=== PATIENT | female | born 1985 | race Caucasian/White ===

== ENCOUNTER 2023-12-15 16:15 | Emergency (ER) | payer BC, SELFPAY ==
--- NOTE | 2023-12-15 16:28 | ED.GENADULT ---
HPI - General Adult General Chief complaint: Upper Respiratory Infection Stated complaint: Fever/Bodyaches Source: patient, RN notes reviewed and old records reviewed Mode of arrival: ambulatory Limitations: no limitations History of Present Illness HPI narrative: 38-year-old female presents to [facility] with complaints cough, congestion, myalgia, fatigue that started today. Patient states he is concerned because has been tested positive for influenza a on Friday. Patient is 21 weeks she has not taken any [id number] medications. Related Data Home Medications Medication Instructions Recorded Confirmed vitamin-ferrous fumarate 1 tablet PO DAILY 12/15/23 12/15/23 40 mg iron-folic acid 1 mg tablet Allergies Allergy/AdvReac Type Severity Reaction Status Date / Time No Known Allergies Allergy Verified 12/15/23 16:26 Review of Systems Constitutional: Constitutional: Reports no additional constitutional complaints, Reports body ache(s), Denies chills, Reports fatigue, Denies fever(s) and Denies headache(s) Eyes: Eyes: Reports no additional eye complaints and Denies blurry vision ENT: Reports system reviewed and no additional complaints, except as documented, Denies vertigo, Denies dizziness, Denies ear discharge, Denies otalgia, Denies facial pain, Denies headache(s), Reports nasal congestion, Reports nasal discharge, Denies sinus pain, Denies sinus pressure and Denies sore throat Cardiovascular: Cardiovascular: Reports no additional cardiovascular complaints, Denies chest pain, Denies chest pain at rest, Denies rapid heart rate and Denies dyspnea Respiratory: Respiratory: Reports no additional respiratory complaints, Denies chest congestion, Reports cough, Denies pain on inspiration, Denies pain with cough and Denies dyspnea Gastrointestinal: Gastrointestinal: Denies abdominal pain, Denies diarrhea, Denies nausea and Denies vomiting Integumentary/Breasts: Skin/Breast: Denies rash Neurologic: Reports system reviewed and no additional complaints, except as documented, Denies vertigo, Denies dizziness and Denies headache(s) Endocrine: Endocrine: Denies fatigue PMFSH Comments At the time of my signature, I reviewed and agree with the nursing past medical, surgical, social, and family history. There is no relevant family history pertinent to the patient complaint. Exam Const: General: cooperative, healthy appearing, no acute distress and well nourished Nutritional Appearance: well nourished Orientation/consciousness: patient oriented x3 Limitations: no limitations HENMT: Head: normal to inspection and normocephalic Ears: external ears normal, TM's normal bilaterally, mastoids normal and Abnormal EAC present Face/Nose/Sinus: normal facial exam Face and sinus: normal facial exam Mouth: Yes Normal oral and palatal mucosa present, Yes oropharynx normal and Yes moist mucous membranes Throat: tonsils normal, uvula midline and no uvular edema Eyes: General: appearance normal, both eyes and all related structures Sclera: sclerae normal Pupils: Equal, round and reactive pupils present Resp: Effort & Inspection: normal respiratory effort, able to speak in complete sentences, no audible wheezes, no cough, no respiratory distress and no retractions Auscultation: clear to auscultation bilaterally, no crackles, no rales, no rhonchi and no wheezes Cardio: Rate: regular rate Rhythm: regular rhythm Skin: General skin exam: normal color and no rashes or lesions noted Neuro: General: patient oriented x3 Cranial nerves: Yes Equal, round and reactive pupils present Psych: Appearance: grossly normal Mental Status: mental status grossly normal Speech and movement: Normal speech and movement present Affect: normal affect Course Course Emergency Course: Patient is aware of diagnosis, understands and agrees to treatment plan.? Anticipatory guidance given.? Patient agrees to follow-up as directed and is
[2023-12-15 16:34] VITALS: BP 100/53; PULSE 114; RESP 20; TEMP 36.9; O2SAT 100
== END 2023-12-15 16:43 | disposition home or self-care (01) ==
PROVIDERS: Emergency Provider Registered Nurse; PCP Family Medicine
DX: O98.512 Other viral diseases complicating pregnancy, second trimester (principal); B33.8 Other specified viral diseases; Z3A.21 21 weeks gestation of pregnancy; J10.1 Influenza due to other identified influenza virus with other respiratory manifestations
CPT/HCPCS: 87804; 99213; G0463

== ENCOUNTER 2024-03-15 18:00 | Observation (INO) | payer BC, SELFPAY ==
--- NOTE | 2024-03-15 18:00 | OBADM ---
This patient, Delmy Louie, admitted to the OB room [facility] for observation. Patient/family oriented to hospital policies and general routines including ID bracelet, bed and alarms, visiting hours, pain management, procedures, bathroom and other care routines, personal items, smoking policy, room service/diet, and visiting hours. Patient/Family are encouraged to report perceived risks to care and to ask questions if they do not understand what they are told or what they should do.
[2024-03-15 18:45] VITALS: BP 129/67; PULSE 101; BMI 43.2
[2024-03-15 18:58] LABS: Appearance Urine Cloudy (Clear); Bacteria Urine 4+ /hpf; Bilirubin Urine Negative (Negative); Blood Urine Negative (Negative); Color Urine Dark Yellow (Yellow); Glucose Urine UA Negative (Negative); Ketones Urine 2+ mg/dL (Negative); Leukocyte Esterase Ur 2+ LEU/UL (Negative); Need Manual Microscopic Reviewed; Nitrate Urine Negative (Negative); Protein Urine 2+ mg/dL (Negative); RBC Urine 0-2 /hpf (0-2); Specific Grav Ur 1.022 (1.001-1.035); Squamous Epithelial Cell Urine Many /hpf (Few); WBC Urine 51-100 /hpf (0-3); pH Urine 6.5 (5.0-9.0)
[2024-03-15 19:00] VITALS: BP 122/71; PULSE 99
[2024-03-15 19:02] LABS: Add Urine Microscopic? YES
[2024-03-15 20:00] VITALS: TEMP 36.5
[2024-03-15] MEDS: SODIUM CHLORIDE 0.9% IV 1,000 ML 999 ML IV CONT (20:06)
[2024-03-15] MEDS: cefTRIAXone 1 GM in DEXTROSE 5% IN WATER 50 ML IVPB (20:07)
[2024-03-15 20:18] LABS: Basophils Absolute Auto 0.1 K/mm3 (0.0-0.1); Basophils Percent Auto 0.3 % (0.2-1.2); Eosinophils Absolute Auto 0.2 K/mm3 (0-0.3); Eosinophils Percent Auto 1.2 % (0-4.4); Hematocrit 34.7 % (37.0-47.0); Hemoglobin 11.4 g/dL (12.0-15.0); Immature Granulocyte Absolute 0.07 K/mm3 (0.00-0.031); Immature Granulocyte Percent A 0.5 % (0-0.5); Lymphocytes Absolute Auto 3.61 K/mm3 (0.9-3.2); Lymphocytes Percent Auto 24.5 % (18.3-44.2); Mean Corpuscular HGB Conc 32.9 g/dl (32-36); Mean Corpuscular Hemoglobin 29.5 pg (26-34); Mean Corpuscular Volume 89.9 fl (80-100); Mean Platelet Volume 9.8 fl (7.4-10.4); Monocytes Absolute Auto 0.8 K/mm3 (0.1-0.6); Monocytes Percent Auto 5.4 % (2.6-8.5); Neutrophils Absolute Auto 10.1 K/mm3 (1.3-6.7); Neutrophils Percent Auto 68.1 % (45.5-73.1); Platelet Count Result 259 k/mm3 (150-375); Red Blood Count 3.86 M/mm3 (4.2-5.4); Red Cell Distribution Width 14.2 % (11.5-14.5); White Blood Count 14.8 K/mm3 (4.5-10.0)
[2024-03-15 20:27] LABS: Alanine Aminotransferase 11 U/L (6-35); Alkaline Phosphatase 88 U/L (38-126); Anion Gap 8 mmol/L (4-12); Aspartate Amino Transferase 21 U/L (14-36); Bilirubin,Total 0.7 mg/dL (0.2-1.3); Blood Urea Nitrogen 5 mg/dL (7-17); Calcium 9.2 mg/dL (8.4-10.2); Carbon Dioxide 23 mmol/L (22-30); Chloride 105 mmol/L (98-107); Estimated CRCL calculation 195 ml/min; Estimated Glomerular Filt Rate > 60; Glucose 98 mg/dL (65-110); Potassium 3.8 mmol/L (3.4-5.0); Sodium 136 mmol/L (137-145)
--- NOTE | 2024-03-16 03:55 | P.PNOB_ITS ---
OB - Triage/Final Diagnosis Visit Information Date of evaluation: 03/15/24 Reason for evaluation: other (uti) Comments/Additional reasons for admission: I have assessed the risk for this patient, Delmy Louie, and determined that she would benefit from observation care. Evaluation Laboratory results: Laboratory Tests 03/15/24 03/15/24 18:34 20:04 WBC 14.8 H RBC 3.86 L Hgb 11.4 L Hct 34.7 L MCV 89.9 MCH 29.5 MCHC 32.9 RDW 14.2 Plt Count 259 MPV 9.8 Immature Gran % (Auto) 0.5 Neut % (Auto) 68.1 Lymph % (Auto) 24.5 [place] % (Auto) 5.4 Eos % (Auto) 1.2 Baso % (Auto) 0.3 Lymph # (Auto) 3.61 H [place] # (Auto) 0.8 H Eos # (Auto) 0.2 Baso # (Auto) 0.1 Abs Immat Gran (auto) 0.07 H Absolute Neuts (auto) 10.1 H Absolute Nucleated RBC 0.000 Nucleated RBC % 0.0 Sodium 136 L Potassium 3.8 Chloride 105 Carbon Dioxide 23 Anion Gap 8 BUN 5 L Creatinine 0.40 L Estim Creat Clear Calc 195 Estimated GFR > 60 Glucose 98 Calcium 9.2 Total Bilirubin 0.7 AST 21 ALT 11 Alkaline Phosphatase 88 Total Protein 7.0 Albumin 4.0 Urine Color Dark yellow Urine Appearance Cloudy H Urine pH 6.5 Ur Specific [place] 1.022 Urine Protein 2+ H Urine Glucose (UA) Negative Urine Ketones 2+ H Ur Blood (Man) Negative Urine Nitrate Negative Urine Bilirubin Negative Urine Urobilinogen 1.0 Ur Leukocyte Esterase 2+ H Add Ur Microanalysis Reviewed Urine RBC 0-2 Urine WBC 51-100 Ur Squamous Epith Cells Many H Urine Bacteria 4+ H Urine Casts 6-10 Vital signs: Vital Signs - 24 hr 03/15/24 18:45 03/15/24 18:45 03/15/24 19:00 Temperature Pulse Rate 101 H 99 Blood Pressure 129/67 122/71 Oxygen Delivery Room Air 03/15/24 20:00 Temperature 97.7 F Pulse Rate Blood Pressure Oxygen Delivery
== END 2024-03-15 21:50 ==
PROVIDERS: Admitting Provider Obstetrics & Gynecology; PCP Family Medicine; Visit Provider Obstetrics & Gynecology
DX: O23.43 Unspecified infection of urinary tract in pregnancy, third trimester (principal); N39.0 Urinary tract infection, site not specified; Z3A.33 33 weeks gestation of pregnancy
CPT/HCPCS: 36415; 80053; 81001; 85025; 87086; 96361; 96365; G0378; G0379; J0696; J7030

== ENCOUNTER 2024-04-12 10:25 | Outpatient (RCR) | payer BC, SELFPAY ==
[2024-04-12 11:16] VITALS: BP 110/62; PULSE 95
== END 2024-07-11 23:59 | disposition home or self-care (01) ==
LOC: ANHOBOP 10:25
PROVIDERS: PCP Family Medicine; Visit Provider Obstetrics & Gynecology
DX: O24.419 Gestational diabetes mellitus in pregnancy, unspecified control (principal); O09.513 Supervision of elderly primigravida, third trimester; Z3A.34 34 weeks gestation of pregnancy
CPT/HCPCS: 59025

== ENCOUNTER 2024-04-21 03:06 | Observation (INO) | payer BC, SELFPAY ==
[2024-04-21] VITALS (19 sets, daily range): BP systolic 120–140; BP diastolic 65–74; PULSE 92–119; O2SAT 96–99; BMI 42.9
[2024-04-21 04:24] LABS: Appearance Urine Cloudy (Clear); Bacteria Urine Rare /hpf; Bilirubin Urine Negative (Negative); Blood Urine Negative (Negative); Color Urine Yellow (Yellow); Glucose Urine UA Negative (Negative); Ketones Urine 2+ mg/dL (Negative); Leukocyte Esterase Ur 1+ LEU/UL (Negative); Nitrate Urine Negative (Negative); Non Pathogenic Casts 0-2; Protein Urine Trace mg/dL (Negative); RBC Urine 0-2 /hpf (0-2); Specific Grav Ur 1.013 (1.001-1.035); Squamous Epithelial Cell Urine Moderate /hpf (Few)
[2024-04-21 04:28] LABS: Add Urine Microscopic? YES
[2024-04-21] MEDS: TERBUTALINE SULFATE 1 MG/ML VIAL 0.25 MG SUB-Q (05:19)
--- NOTE | 2024-04-21 06:15 | PM.OBTRLD ---
OB - Triage/Final Diagnosis Visit Information Date of evaluation: 04/21/24 Reason for evaluation: threatened labor Comments/Additional reasons for admission: I have assessed the risk for this patient, Delmy Louie, and determined that she would benefit from observation care. Evaluation Laboratory results: Laboratory Tests 04/21/24 03:53 Urine Color Yellow Urine Appearance Cloudy H Urine pH 6.0 Ur Specific [place] 1.013 Urine Protein Trace Urine Glucose (UA) Negative Urine Ketones 2+ H Ur Blood (Man) Negative Urine Nitrate Negative Urine Bilirubin Negative Urine Urobilinogen 1.0 Leukocyte Esterase Rfl 1+ H Urine RBC 0-2 Urine WBC 6-10 H Ur Squamous Epith Cells Moderate Urine Bacteria Rare Urine Casts 0-2 Vital signs: Vital Signs - 24 hr 04/21/24 03:22 04/21/24 03:30 04/21/24 04:00 Pulse Rate 98 100 93 Blood Pressure 140/70 120/69 128/65 Pulse Oximetry Oxygen Delivery 04/21/24 05:18 04/21/24 05:23 04/21/24 05:28 Pulse Rate Blood Pressure Pulse Oximetry 97 98 96 Oxygen Delivery 04/21/24 05:33 04/21/24 05:38 04/21/24 05:43 Pulse Rate Blood Pressure Pulse Oximetry 97 97 97 Oxygen Delivery 04/21/24 05:48 04/21/24 05:53 04/21/24 05:58 Pulse Rate Blood Pressure Pulse Oximetry 97 99 98 Oxygen Delivery 04/21/24 06:00 04/21/24 06:03 04/21/24 06:08 Pulse Rate 115 H Blood Pressure 124/74 Pulse Oximetry 98 97 Oxygen Delivery 04/21/24 06:13 04/21/24 03:28 Pulse Rate Blood Pressure Pulse Oximetry 97 Oxygen Delivery Room Air
== END 2024-04-21 06:38 ==
PROVIDERS: Admitting Provider Obstetrics & Gynecology; PCP Family Medicine; Visit Provider Obstetrics & Gynecology
DX: O47.03 False labor before 37 completed weeks of gestation, third trimester (principal); Z3A.35 35 weeks gestation of pregnancy
CPT/HCPCS: 81001; 87086; 87088; 96372; G0378; G0379; J3105